=== PATIENT | female | born 1940 | race Two or more races ===

== ENCOUNTER 2020-10-23 08:41 | Day surgery (SDC) | payer MEDICARE, BC ==
[2020-10-23] MEDS ORDERED: LIDOCAINE HCL 2% 100 MG/5 ML IJ ONE (08:42)
[2020-10-23] MEDS ORDERED: Depo-Medrol 40 MG/ML IM ONE (08:42)
[2020-10-23] MEDS ORDERED: DIPRIVAN 200 MG/20 ML IV ONE (10:03)
--- NOTE | 2020-10-23 11:30 | XRAY ---
Indication: Bilateral L4-S1 MBB. Intraoperative fluoroscopy provided for 11 seconds. Single digital spot image submitted for interpretation demonstrates posterior needle tips projecting over the expected left and right L4-S1 nerve roots. Correlate with intraoperative findings/report.
--- NOTE | 2020-10-23 11:40 | XRAY ---
11 seconds fluoroscopy time in surgery for bilateral L4-S1 MBB.
[2020-10-23] MEDS ORDERED: Lactated Ringers 1,000 ML IV ONE (11:41)
== END 2020-10-23 10:32 | disposition home or self-care (01) ==
LOC: SDC-PAIN 08:41
PROVIDERS: ATTEND Psychiatry & Neurology Pain Medicine
DX: M47.816 Spondylosis without myelopathy or radiculopathy, lumbar region (principal); E11.9 Type 2 diabetes mellitus without complications; Z79.899 Other long term (current) drug therapy
CPT/HCPCS: 64493; 64494; 72020; 77002; 82947; J1030; J2704